=== PATIENT | male | born 2000 | race Caucasian/White ===

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

== ENCOUNTER 2021-10-31 13:41 | Emergency (ER) | payer BC, SELFPAY ==
--- NOTE | 2021-10-31 13:58 | XR_ITS ---
FINAL REPORT CLINICAL HISTORY: PAIN FINDINGS: RIGHT RIB SERIES Four views of the right ribs show a right 8th distal rib fracture. There is no pneumothorax or pleural fluid collection. Frontal chest radiograph is unremarkable. IMPRESSION: Right 8th distal rib fracture. No pneumothorax. Reviewed, Interpreted and Dictated by Tony Clement III, MD Transcribed by Ginna Loyd Authenticated and . [facility]
[2021-10-31 14:20] VITALS: BP 131/89; PULSE 79; RESP 18; TEMP 36.9; O2SAT 99; BMI 21.4
--- NOTE | 2021-10-31 15:01 | EXP.UTC ---
Discharge Plan Disposition Patient Disposition: Home, Self-Care Condition: Good Prescriptions Prescriptions: No Action amoxicillin 500 mg capsule 500 mg PO Q12H 10 Days Qty: 20 0RF Referrals Follow up/Referrals: Provider,Referral, MD [Primary Care Provider] - See instructions Activity Restrictions/Add. Instructions Additional Instructions/Restrictions: *Ibuprofen ray 6 hours with meal as needed for pain/inflammation *Not additional anti-inflammatory like motrin, aleve, advil with the above amount of ibuprofen. You can still take Tylenol every 4 hours as needed if you need something else for pain *Ice 20 minutes every 2 hours for the first 48 hours after the initial injury followed by moist heat every 20 minutes 3-4 times a day to affected area *Keep this area active, no movement leads to more stiffness, However take it easy and avoid heavy lifting pushing or pulling *Follow up with you family doctor if no improvement for further treatment Make sure to take deep breaths Over the counter lidocaine patches may help with pain adn discomfort Clinical Impressions Clinical Impression: Closed rib fracture Instructions Patient Instructions: Rib Fracture, DI for Rib Fracture Discharge ED Provider: Ashley Tran [facility] [place] HPI General Stated complaint: R rib pain Mode of Arrival: Ambulatory Source of Information: Patient Limitations: No Limitations Time Seen by Provider: 10/31/21 15:01 Description of Symptoms (Recalled from Triage Doc. by RN): PATIENT STATES HE WAS PLAYING SOFTBALL LAST WEEKEND AND SLID INTO BASE ON RIGHT SIDE. C/O PAIN TO RIGHT RIB AREA THAT IS WORSE WITH A DEEP BREATH HEENT Symptoms (Recalled from RN notes): No Resp Symptoms (Recalled from RN notes): No Skin Symptoms (Recalled from RN notes): No MS Symptoms (Recalled from RN notes): Yes Functional Status (Recalled from RN notes): WNL History of Present Illness Provider Complaint: Patient states that he was playing softball last weekend and he slide into base and hurt his ribs on his right side States that ever since he has been having pain in his right ribs that is worse when he takes a deep breath or moves certain ways States that that today he was still having pain so he came in to get checked Related Data Previous Rx's Medication Instructions Recorded amoxicillin 500 mg capsule 500 mg PO Q12H otitis media 10 12/30/18 days #20 caps Allergies Allergy/AdvReac Type Severity Reaction Status Date / Time No Known Allergies Allergy Verified 12/30/18 12:32 Worker's Comp Is this a Worker's Comp case?: No PFSH PFSH Medical History (Updated 10/31/21 @ 15:17 by Ashley Tran APRN) No significant past medical history Social History (Updated 10/31/21 @ 14:44 by Talia Gautam RN) Smoking Status: Never smoker alcohol intake: current current occupational status: employed Travel in the last 8 weeks: None ROS Obtained: Yes All systems reviewed & no additional complaints except as documented and Yes Systems reviewed as appropriate & no additional complaints except as documented Cardiovascular Cardiovascular: Reports system reviewed and no additional complaints, except as documented, Reports as per HPI, Denies chest pain and Reports other (right rib pain ) Respiratory Respiratory: Reports system reviewed and no additional complaints, except as documented, Reports excessive phlegm production and Reports other (pain in right ribs with deep breath) Physical Exam General General appearance: alert and in no apparent distress Chest Chest inspection: Present normal inspection and symmetric chest wall rise Expanded Chest Exam Breast: right: tenderness Male Torso: 1. reports pain in right lower ribs no bruising or swelling noted Respiratory Respiratory exam: Present normal lung sounds bilaterally; Absent respiratory distress or wheezes Cardiovascular Cardiovascular exam: Present regular rate, normal rhythm and normal heart sounds Neuro
[2021-10-31 15:20] VITALS: BP 131/89; PULSE 79; RESP 18; TEMP 36.9; O2SAT 99
== END 2021-10-31 15:24 | disposition home or self-care (01) ==
PROVIDERS: Emergency Provider Nurse Practitioner
DX: S22.31XA Fracture of one rib, right side, initial encounter for closed fracture (principal); W18.09XA Striking against other object with subsequent fall, initial encounter; Y93.64 Activity, baseball; Y92.320 Baseball field as the place of occurrence of the external cause
CPT/HCPCS: 71101; 99212; G0463

== ENCOUNTER 2022-06-10 16:29 | Emergency (ER) | payer BC, SELFPAY ==
[2022-06-10 16:35] VITALS: BP 155/91; PULSE 100; RESP 16; TEMP 37.4; O2SAT 100; BMI 20.5
[2022-06-10 16:37] VITALS: BP 155/91; PULSE 100; RESP 16; TEMP 37.4; O2SAT 100; BMI 20.4
--- NOTE | 2022-06-10 16:39 | XR_ITS ---
PROCEDURE INFORMATION: Exam: XR Right Foot Exam date and time: 06/10/2022 4:38 PM Age: 22 years old Clinical indication: Injury or trauma; Fall; Blunt trauma; Foot; Patient HX: Rolled right ankle playing ball this morning. TECHNIQUE: Imaging protocol: Radiologic exam of the right foot. Views: 3 or more views. COMPARISON: No relevant prior studies available. FINDINGS: Bones/joints: No acute fracture or dislocation. Soft tissues: Soft tissue edema over the lateral malleolus. IMPRESSION: Soft tissue edema over the lateral malleolus.
--- NOTE | 2022-06-10 16:39 | XR_ITS ---
PROCEDURE INFORMATION: Exam: XR Right Ankle Exam date and time: 06/10/2022 4:40 PM Age: 22 years old Clinical indication: Injury or trauma; Fall; Blunt trauma; Right; Patient HX: Rolled ankle playing ball this morning. TECHNIQUE: Imaging protocol: Radiologic exam of the right ankle. Views: 3 or more views. COMPARISON: CR XR FOOT RT MIN 3V 06/10/2022 4:38 PM FINDINGS: Bones/joints: No acute fracture or dislocation. Soft tissues: Lateral soft tissue edema. IMPRESSION: 1. No acute fracture or dislocation. 2. Lateral soft tissue edema.
--- NOTE | 2022-06-10 16:55 | EXP.UTC ---
Discharge Plan Disposition Patient Disposition: Home, Self-Care Condition: Good Prescriptions Prescriptions: New ibuprofen [ibuprofen] 600 mg tablet 600 mg PO Q6HP PRN (Reason: Mild Pain) Qty: 30 0RF Referrals Follow up/Referrals: Provider,Referral, [Primary Care Provider] - See instructions Rhianonn Hernandez DPM [Staff Physician] - See instructions Activity Restrictions/Add. Instructions Additional Instructions/Restrictions: Rest the extremity, apply ice for 15 minutes as tolerated three or four times per day, Elevate the extremity as tolerated while you are resting. Take ibuprofen for pain. I sent in a prescription to your pharmacy. Follow up with Dr. Hernandez (podiatry). Sometimes there can be fractures that don't show up well on the first set of x-rays. I put in a referral but you need to call her office and schedule an appointment. Follow up with your regular doctor. GO TO THE ER FOR ANY WORSENING SYMPTOMS Clinical Impressions Clinical Impression: Sprain of ankle, right, Sprain of foot, right Instructions Patient Instructions: Ankle Sprain, DI for Ankle Sprain, How to Use Crutches Discharge ED Provider: Paresh Covington [facility] [place] HPI General Stated complaint: ao 06/10@1430 @[facility] Mode of Arrival: Wheelchair Source of Information: Parent(s) Limitations: No Limitations Time Seen by Provider: 06/10/22 16:55 Description of Symptoms (Recalled from Triage Doc. by RN): c/o pain to R ankle, injury during running to a base during a baseball. Swelling and bruising noted to R ankle. Pulses + History of Present Illness Provider Complaint: He states that he has had pain of R ankle after injuring during running during a baseball game. 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 Swelling and bruising noted to R ankle. Related Data Previous Rx's Medication Instructions Recorded ibuprofen 600 mg tablet 600 mg PO Q6HP PRN Mild Pain #30 06/10/22 tabs Allergies Allergy/AdvReac Type Severity Reaction Status Date / Time No Known Allergies Allergy Verified 12/30/18 12:32 Worker's Comp Is this a Worker's Comp case?: No [facility] Disclaimer: The information contained in this section may have been updated after the patient was seen, as this information can be updated by other users. Medical History No significant past medical history Social History Smoking Status: Never smoker alcohol intake: current current occupational status: employed Travel in the last 8 weeks: None ROS Obtained: Yes All systems reviewed & no additional complaints except as documented Constitutional Constitutional: Denies chills and Denies fever(s) Eyes Eyes: Denies eye discharge ENT Ears, Nose, Mouth, and Throat: Denies dizziness, Denies otalgia and Denies sore throat Cardiovascular Cardiovascular: Denies chest pain Respiratory Respiratory: Denies shortness of breath, Denies chest congestion, Denies cough, Denies stridor and Denies wheezing Gastrointestinal Gastrointestingal: Denies nausea or vomiting Musculoskeletal Musculoskeletal: Reports as per HPI Integumentary/Breasts Skin/Breast: Denies redness, Denies rash and Denies wounds Neurologic Neurologic: Denies dizziness and Denies paresthesias Allergic/Immunologic Allergic/Immunologic: Denies wheezing Physical Exam General General appearance: alert and in no apparent distress Head Head exam: atraumatic, normocephalic and normal inspection Eye Eye exam: Present normal appearance, PERRL and EOMI ENT ENT exam: Present normal exam, normal oropharynx, mucous membranes moist, TM's normal bilaterally and normal external ear exam Neck Neck exam: Present normal inspection, full ROM and trachea midline; Absent meningismus or lymphadenopathy Chest Chest inspection: Present normal inspection and symmetric chest wall rise; Absent tenderness Respiratory Respir
[2022-06-10 17:43] VITALS: BP 155/91; PULSE 100; RESP 16; TEMP 37.4; O2SAT 100
== END 2022-06-10 18:00 | disposition home or self-care (01) ==
PROVIDERS: Emergency Provider Nurse Practitioner Family
DX: S93.401A Sprain of unspecified ligament of right ankle, initial encounter (principal); S93.601A Unspecified sprain of right foot, initial encounter; X50.9XXA Other and unspecified overexertion or strenuous movements or postures, initial encounter
CPT/HCPCS: 73610; 73630; 99212; 99214; G0463

== ENCOUNTER 2022-10-11 10:00 | Emergency (ER) | payer BC, SELFPAY ==
[2022-10-11 10:00] VITALS: BP 139/73; PULSE 99; RESP 24; TEMP 37.3; O2SAT 100; BMI 20.9
--- NOTE | 2022-10-11 10:09 | XR_ITS ---
FINAL REPORT TECHNIQUE: Chest PA & Lateral CLINICAL HISTORY: Shortness of breath COMPARISON: 10/31/2021 FINDINGS: 2 views of the chest were performed. The heart size is normal. The mediastinum is within normal limits. There is no acute cardiopulmonary process. There are no pleural effusions. There is no pneumothorax. The bony thorax appears intact. IMPRESSION: No acute cardiopulmonary process. Reviewed, Interpreted and Dictated by Ventura Wisdom MD Transcribed by Josephine Ventura Authenticated and [facility]
--- NOTE | 2022-10-11 10:10 | HMH.EDGENADL ---
Discharge Plan Disposition Patient Disposition: Home, Self-Care Condition: Good Prescriptions Prescriptions: New hydroxyzine HCl 25 mg tablet 25 mg PO Q8H PRN (Reason: nausea and vomiting) Qty: 20 0RF Referrals Follow up/Referrals: Provider,Referral, [Primary Care Provider] - See instructions Activity Restrictions/Add. Instructions Additional Instructions/Restrictions: You were evaluated in the emergency department today. At this time, we feel that your symptoms were related to a panic attack. Please flower buncher or picker your prescription at the pharmacy and take as needed for panic/anxiety. It may cause you to be sleepy, so do not take while driving or operating heavy machinery. Follow-up with your primary care provider. We are providing you with a list of those excepting patients. Return to the emergency department for any new or worsening symptoms. Clinical Impressions Clinical Impression: Panic attack Stand Alone Forms Stand Alone Forms: Work/School Release Instructions Patient Instructions: Anxiety and Panic Attacks (Alternative Therapy) Discharge ED Provider: Alannah Ludwig General Adult HPI General Chief complaint: Shortness of Breath/Dyspnea Stated complaint: SOA Time Seen by Provider: 10/11/22 10:00 History of Present Illness HPI narrative: This patient is a 22-year-old male who denies significant past medical history presenting to the emergency department for evaluation with concern for shortness of breath. 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 He denies experiencing anything like this in the past. He states that it sentiment to a panic, and then he started hyperventilating. Once he hyperventilated, his hands and feet became numb and tingly. He states that since being picked up by EMS, his symptoms have gradually improved. He is now feeling much better and feels like he can breathe normally. He believes that he had a panic attack. He was well prior to this with no fevers, cough, congestion, shortness of breath, chest pain, abdominal pain, nausea, vomiting, changes in bowel movements, lower extremity swelling, calf pain, or other concerns. He denies any history of blood clots or clotting disorders. Related Data Previous Rx's Medication Instructions Recorded hydroxyzine HCl 25 mg tablet 25 mg PO Q8H PRN nausea and 10/11/22 vomiting #20 tabs Allergies Allergy/AdvReac Type Severity Reaction Status Date / Time No Known Allergies Allergy Verified 12/30/18 12:32 [facility] Disclaimer: The information contained in this section may have been updated after the patient was seen, as this information can be updated by other users. Medical History No significant past medical history Social History Smoking Status: Current every day smoker tobacco type: smokeless tobacco alcohol intake: current current occupational status: employed Travel in the last 8 weeks: None ROS Obtained: Yes All systems reviewed & no additional complaints except as documented Physical Exam General General appearance: alert, in no apparent distress and anxious Head Head exam: atraumatic and normocephalic Eye Eye exam: Present normal appearance, PERRL and EOMI ENT ENT exam: Present normal exam, normal oropharynx, mucous membranes moist and normal external ear exam Neck Neck exam: Present normal inspection, full ROM and trachea midline; Absent tenderness Chest Chest inspection: Present normal inspection and symmetric chest wall rise; Absent tenderness Respiratory Respiratory exam: Present normal lung sounds bilaterally; Absent respiratory distress, wheezes, stridor or accessory muscle use Cardiovascular Cardiovascular exam: Present regular rate and normal rhythm Abdominal Exam Abdominal exam: Prese
--- NOTE | 2022-10-11 10:13 | ECG_ITS ---
APPROVED REPORT Exam: Resting ECG HR:77 bpm ECG Measurements Heart Rate 77 AXES UT 109 P 7 QRSd 106 QRS 70 QT 356 T 60 QTc 388 Conclusion SINUS RHYTHM WITH SHORT UT INTERVAL INCOMPLETE RIGHT BUNDLE BRANCH BLOCK [90+ ms QRS DURATION, TERMINAL R IN V1/V2, 40+ ms S IN I/aVL/V4/V5/V6] BORDERLINE ECG UNCONFIRMED REPORT Electronically signed by : Dylan Underwood MD 10/11/2022 16:39:03
--- NOTE | 2022-10-11 10:18 | PC.NURSE ---
Uncle at BS; call blanco within reach
[2022-10-11 10:30] VITALS: BP 134/83; PULSE 84; O2SAT 99
[2022-10-11 11:00] VITALS: BP 118/74; PULSE 67; O2SAT 94
[2022-10-11 11:30] VITALS: BP 113/70; PULSE 70; O2SAT 98
[2022-10-11 11:40] VITALS: BP 113/70; PULSE 72; RESP 17; TEMP 36.7; O2SAT 98
== END 2022-10-11 11:45 | disposition home or self-care (01) ==
PROVIDERS: Emergency Provider Emergency Medicine
DX: F41.0 Panic disorder [episodic paroxysmal anxiety] (principal); R06.02 Shortness of breath; F17.290 Nicotine dependence, other tobacco product, uncomplicated
CPT/HCPCS: 71046; 93005; 99284

== ENCOUNTER 2022-10-29 13:37 | Emergency (ER) | payer BC, SELFPAY ==
[2022-10-29 13:40] VITALS: BP 145/93; PULSE 67; RESP 20; TEMP 36.9; O2SAT 100; BMI 20.9
--- NOTE | 2022-10-29 13:47 | XR_ITS ---
FINAL REPORT CLINICAL HISTORY: RT ARM PAIN AFTER HITTING A TREE WITH A BASEBALL BAT FINDINGS: RIGHT WRIST Three views demonstrate a lucency in the scaphoid worrisome for nondisplaced fracture, age-indeterminate. No other fracture is identified. The visualized joint spaces are normally aligned. The soft tissues are unremarkable. IMPRESSION: Age-indeterminate fracture of the scaphoid. This can be further evaluated with follow-up x-rays or MRI. Reviewed, Interpreted and Dictated by Tony Clement III, MD Transcribed by Cadence Ramirez Authenticated and [facility]
--- NOTE | 2022-10-29 13:47 | XR_ITS ---
FINAL REPORT CLINICAL HISTORY: RT ARM PAIN AFTER HITTING A TREE WITH A BASEBALL BAT FINDINGS: 2 views of the right forearm were obtained. There is no acute fracture or dislocation. The joints are intact. There are no soft tissue abnormalities. IMPRESSION: No acute process. Reviewed, Interpreted and Dictated by Tony Clement III, MD Transcribed by Cadence Ramirez Authenticated and [facility]
--- NOTE | 2022-10-29 14:01 | EXP.UTC ---
Discharge Plan Disposition Patient Disposition: Home, Self-Care Condition: Good Prescriptions Prescriptions: No Action hydroxyzine HCl 25 mg tablet 25 mg PO Q8H PRN (Reason: nausea and vomiting) Qty: 20 0RF Referrals Follow up/Referrals: Provider,Referral, MD [Primary Care Provider] - See instructions Activity Restrictions/Add. Instructions Additional Instructions/Restrictions: *RICE, Rest the extremity, Ice 15-20 minutes 3-4 times daily, Compress- wear the shelley wrap as discussed as much as possible to help reduce swelling and pain, Elevate the extremity when at rest *Thumb Spica splint is for support and help control swelling Be sure that is not to tight but not to loose either *Elevate when resting? *Ibuprofen 600 every 6-8 hours as needed for pain an inflammation. If need something more can take Tylenol in between doses of Ibuprofen to help Immediately follow up with your family doctor for new or worsening of symptoms, or no noticeable improvement over the next 3-5 days Call [facility] at [phone] for appointment or you may try [facility] in [place] where you live to see if they see these types of fractures at [phone] Clinical Impressions Clinical Impression: Fracture of scaphoid Qualifiers: Encounter type: initial encounter Scaphoid bone location: unspecified portion of scaphoid Fracture type: closed Fracture alignment: nondisplaced Laterality: right Qualified Code(s): S62.001A - Unspecified fracture of navicular [scaphoid] bone of right wrist, initial encounter for closed fracture Instructions Patient Instructions: Wrist Fracture Discharge ED Provider: Ashley Tran [facility] General Stated complaint: AO9/9, pain in Rt wrist Mode of Arrival: Ambulatory Source of Information: Patient Limitations: No Limitations Time Seen by Provider: 10/29/22 13:55 Description of Symptoms (Recalled from Triage Doc. by RN): PATIENT C/O PAIN TO RIGHT WRIST/FOREARM AFTER HITTING A TREE WITH A BASEBALL BAT SATURDAY HEENT Symptoms (Recalled from RN notes): No Resp Symptoms (Recalled from RN notes): No Skin Symptoms (Recalled from RN notes): No MS Symptoms (Recalled from RN notes): Yes Functional Status (Recalled from RN notes): WNL History of Present Illness Provider Complaint: Patient states that over the weekend he took a bat and was hitting a tree State that since then he has been having pain in his right wrist that goes into his right forearm so today when he was still hurting he came in to get it checked Related Data Previous Rx's Medication Instructions Recorded hydroxyzine HCl 25 mg tablet 25 mg PO Q8H PRN nausea and 10/11/22 vomiting #20 tabs Allergies Allergy/AdvReac Type Severity Reaction Status Date / Time No Known Allergies Allergy Verified 12/30/18 12:32 Worker's Comp Is this a Worker's Comp case?: No [facility] Disclaimer: The information contained in this section may have been updated after the patient was seen, as this information can be updated by other users. Medical History No significant past medical history Social History Smoking Status: Current every day smoker tobacco type: smokeless tobacco alcohol intake: current current occupational status: employed Travel in the last 8 weeks: None ROS Obtained: Yes All systems reviewed & no additional complaints except as documented and Yes Systems reviewed as appropriate & no additional complaints except as documented Constitutional Constitutional: Reports system reviewed and no additional complaints, except as documented and Reports as per HPI ENT Ears, Nose, Mouth, and Throat: Reports system reviewed and no additional complaints, except as documented and Reports as per HPI Cardiovascular Cardiovascular: Reports system reviewed and no additional complaints, except as documented and Reports as per HPI R
[2022-10-29 14:58] VITALS: BP 145/93; PULSE 67; RESP 20; TEMP 36.9; O2SAT 100
== END 2022-10-29 16:19 | disposition home or self-care (01) ==
PROVIDERS: Emergency Provider Nurse Practitioner
DX: S62.001A Unspecified fracture of navicular [scaphoid] bone of right wrist, initial encounter for closed fracture (principal); F17.290 Nicotine dependence, other tobacco product, uncomplicated; W22.8XXA Striking against or struck by other objects, initial encounter
CPT/HCPCS: 73090; 73110; 99212; 99214; G0463